=== PATIENT | female | born 1985 | race Caucasian/White ===

== ENCOUNTER → 2018-12-07 08:51 | Outpatient (CLI) | payer OTHER, SELFPAY ==
[2018-11-17 12:37] VITALS: BMI 32.5
[2018-12-07 10:52] LABS: Anion Gap 6 (5-15); BUN 19 mg/dL (7-18); Chloride 107 mmol/L (98-107); Cholesterol 174 mg/dL (200); EST Glomerular Filtration Rate 102 mL/min (>60); Est Glom Filt Rate - Afr Amer 123 mL/min (>60); Glucose 78 mg/dL (74-106); High Density Lipoprotein 75 mg/dL; Potassium 3.8 mmol/L (3.5-5.1); Sodium Level 140 mmol/L (136-145); Thyroid Stim Hormone (TSH) 2.15 uIU/mL (0.358-3.74); Triglycerides 65 mg/dL; Very Low Density Lipoprotein 13 mg/dL (5-40)
== END ==
PROVIDERS: Family Provider Family Medicine; PCP Family Medicine; Referring Provider Family Medicine; Visit Provider Family Medicine
DX: Z00.00 Encounter for general adult medical examination without abnormal findings (principal)
CPT/HCPCS: 36415; 80048; 80061; 84443

== ENCOUNTER → 2019-11-23 | Outpatient (CLI) | payer OTHER, SELFPAY ==
[2019-11-23 10:06] VITALS: BMI 36.5
[2019-11-28 11:52] LABS: HPV APTIMA, High Risk Negative (Negative)
== END | disposition home or self-care (01) ==
PROVIDERS: PCP Family Medicine; Referring Provider Obstetrics & Gynecology; Visit Provider Obstetrics & Gynecology
DX: Z12.4 Encounter for screening for malignant neoplasm of cervix (principal)
CPT/HCPCS: 87624; 88175; G0145

== ENCOUNTER → 2019-11-26 10:21 | Outpatient (CLI) | payer OTHER, SELFPAY ==
[2019-11-23 10:06] VITALS: BMI 36.5
[2019-11-26 11:19] LABS: Vitamin D,25 Hydroxy 22.9 ng/mL
[2019-11-26 11:24] LABS: Cholesterol 158 mg/dL (200); Glucose 86 mg/dL (74-106); High Density Lipoprotein 55 mg/dL; Triglycerides 96 mg/dL; Very Low Density Lipoprotein 19 mg/dL (5-40)
== END ==
PROVIDERS: PCP Family Medicine; Referring Provider Obstetrics & Gynecology; Visit Provider Obstetrics & Gynecology
DX: Z13.1 Encounter for screening for diabetes mellitus (principal); Z13.220 Encounter for screening for lipoid disorders; Z13.21 Encounter for screening for nutritional disorder
CPT/HCPCS: 36415; 80061; 82306; 82947

== ENCOUNTER → 2020-11-29 13:07 | Outpatient (CLI) | payer OTHER, SELFPAY ==
[2020-11-29 09:00] VITALS: BMI 31.4
[2020-12-04 20:33] LABS: HPV APTIMA, High Risk Negative (Negative)
== END ==
PROVIDERS: Visit Provider Obstetrics & Gynecology
DX: Z12.4 Encounter for screening for malignant neoplasm of cervix (principal)
CPT/HCPCS: 87624; 88175; G0145

== ENCOUNTER 2021-12-18 07:13 | Outpatient (CLI) | payer OTHER, SELFPAY ==
[2021-12-18 10:27] LABS: Vitamin D,25 Hydroxy 21.7 ng/mL
[2021-12-18 10:38] LABS: Anion Gap 4 (5-15); BUN 16 mg/dL (7-18); BUN/Creat Ratio 21.5 RATIO (10-20); Calcium,Total 9.4 mg/dL (8.5-10.1); Chloride 106 mmol/L (98-107); Cholesterol 174 mg/dL (200); Creatinine, Serum 0.74 mg/dL (0.55-1.02); EST Glomerular Filtration Rate 94 mL/min (>60); Est Glom Filt Rate - Afr Amer 113 mL/min (>60); Follicle Stimulating Hormone 7.9 mIU/mL; Glucose 93 mg/dL (74-106); High Density Lipoprotein 72 mg/dL; Luteinizing Hormone 4.6 mIU/mL; Potassium 3.8 mmol/L (3.5-5.1); Sodium Level 137 mmol/L (136-145); Thyroid Stim Hormone (TSH) 1.82 uIU/mL (0.358-3.74); Triglycerides 66 mg/dL; Very Low Density Lipoprotein 13 mg/dL (5-40)
[2021-12-24 16:51] LABS: Estrogen, Total, Serum 98 pg/mL (.)
== END 2021-12-18 23:59 | disposition home or self-care (01) ==
LOC: MTLAB 07:15
PROVIDERS: PCP Family Medicine; Referring Provider Family Medicine; Visit Provider Family Medicine
DX: Z00.00 Encounter for general adult medical examination without abnormal findings (principal); R23.2 Flushing
CPT/HCPCS: 36415; 80048; 80061; 82306; 82672; 83001; 83002; 84443

== ENCOUNTER → 2022-12-20 | Outpatient (CLI) | payer OTHER, SELFPAY ==
--- NOTE | 2022-12-20 10:40 | US_ITS ---
INDICATION: secondary oligomenorrhea EXAMINATION: Ultrasound US Pelvis Non OB Complete With Transvaginal Imaging TECHNIQUE: Transabdominal and transvaginal pelvic ultrasound was performed. Grayscale, spectral waveform, and color flow Doppler evaluation of the adnexa. COMPARISON: None. FINDINGS: UTERUS: Anteverted. The uterus measures 8.6 x 6.1 x 4.2 cm. There is no uterine mass. The endometrial stripe measures 4 mm in AP diameter which is within normal limits. RIGHT OVARY: 3.4 x 2.2 x 2.0%. Non-enlarged, normal echogenicity. There is normal arterial inflow and venous outflow present in the right ovary. LEFT OVARY: 2.8 x 1.9 x 1.6 cm. Non-enlarged, normal echogenicity. There is normal arterial inflow and venous outflow present in the left ovary. Both ovaries demonstrate multiple peripheral follicular cysts consistent with polycystic ovarian syndrome. FREE FLUID: None. US/Pelvic w/ Transvaginal IMPRESSION: Uterus normal. Multiple peripheral cysts within both ovaries consistent with polycystic ovarian syndrome. Electronically Signed: Ethan Greenfield MD, NIR at 12:52 EDT ,
== END | disposition home or self-care (01) ==
PROVIDERS: PCP Family Medicine; Referring Provider Obstetrics & Gynecology; Visit Provider Obstetrics & Gynecology
DX: N91.4 Secondary oligomenorrhea (principal)
CPT/HCPCS: 76830; 76856

== ENCOUNTER → 2022-12-22 | Outpatient (CLI) | payer OTHER, SELFPAY ==
[2022-12-22 12:53] LABS: Anion Gap 3 (5-15); BUN 14 mg/dL (7-18); BUN/Creat Ratio 21.2 RATIO (10-20); Calcium,Total 9.2 mg/dL (8.5-10.1); Chloride 107 mmol/L (98-107); Cholesterol 182 mg/dL (200); Creatinine, Serum 0.66 mg/dL (0.55-1.02); EST Glomerular Filtration Rate 107 mL/min (>60); Est Glom Filt Rate - Afr Amer 130 mL/min (>60); Estradiol 40.8 pg/mL; Follicle Stimulating Hormone 7.7 mIU/mL; Glucose 87 mg/dL (74-106); High Density Lipoprotein 78 mg/dL; Luteinizing Hormone 7.2 mIU/mL; Potassium 3.8 mmol/L (3.5-5.1); Prolactin 9.8 ng/mL; Sodium Level 138 mmol/L (136-145); Thyroid Stim Hormone (TSH) 1.68 uIU/mL (0.358-3.74); Triglycerides 53 mg/dL; Very Low Density Lipoprotein 11 mg/dL (5-40)
[2022-12-26 02:07] LABS: Testosterone Free 4.4 pg/mL (0.0-4.2)
[2022-12-26 10:45] LABS: Estrogen, Total, Serum 124 pg/mL (.)
[2023-01-01 15:08] LABS: 17-Hydroxyprogesterone 21 ng/dL (.)
== END | disposition home or self-care (01) ==
LOC: MFPLAB 09:46
PROVIDERS: Obstetrics & Gynecology; PCP Family Medicine; Visit Provider Family Medicine
DX: Z00.00 Encounter for general adult medical examination without abnormal findings (principal); N91.2 Amenorrhea, unspecified
CPT/HCPCS: 36415; 80048; 80061; 82627; 82670; 82672; 83001; 83002; 83498; 84146; 84402; 84443; 82626

== ENCOUNTER 2023-01-14 10:37 | Outpatient (RCR) | payer OTHER, SELFPAY | END 2023-02-11 23:59 | LOC: NS 10:37 | PROVIDERS: PCP Family Medicine; Referring Provider Obstetrics & Gynecology; Visit Provider Obstetrics & Gynecology | DX: E66.9 Obesity, unspecified (principal); Z71.3 Dietary counseling and surveillance; Z68.31 Body mass index [BMI] 31.0-31.9, adult | CPT/HCPCS: 97802 ==

== ENCOUNTER 2024-01-15 20:06 | Emergency (ER) | payer OTHER, SELFPAY ==
[2024-01-15 20:07] VITALS: BP 151/90; PULSE 80; RESP 16; TEMP 36.8; O2SAT 100; BMI 31.6
--- NOTE | 2024-01-15 20:25 | RAD_ITS ---
INDICATION: Trauma EXAMINATION/TECHNIQUE: X-RAY - LEFT XR Ankle Min 3 Views 3 VIEWS COMPARISON: No relevant prior comparison study available FINDINGS: SOFT TISSUES: No soft tissue swelling or gas. No radiopaque foreign body. BONES/JOINTS: Displaced bimalleolar fractures. Widening of the tibiofibular syndesmosis consistent with syndesmosis ligament tear. No sclerotic or destructive changes observed. RAD/Ankle min 3 Views IMPRESSION: Displaced bimalleolar fractures. Widening of the tibiofibular syndesmosis consistent with syndesmosis ligament tear. Electronically Signed: Romel Lau MD at 20:52 EDT ,
--- NOTE | 2024-01-15 20:25 | ED.VIS.LOWEX ---
HPI History of Present Illness Chief Complaint: Lower Extremity Injury Narrative Narrative: 38-year-old female who denies significant past medical history presents with pain and swelling to her left ankle after she sustained an injury while she was walking her dog. She states that she has a boxer and they were out for a walk. Her dog is pretty strong, and started running up the hill. In order to hold her dog back, she braced against the hill, heard a pop in her left ankle and fell. She denies hitting her head or loss of consciousness, but is now having pain and swelling mainly in the medial aspect of her left ankle. She states she can hear popping and cracking when she tries to move or bear weight on her left lower extremity. She denies other injury. PFSH PFSH Home Medications cholecalciferol (vitamin D3) 10 mcg (400 unit) capsule 10 mcg PO DAILY 12/17/23 [History Last Taken Unknown] zinc acetate 25 mg (zinc) capsule (Galzin) 25 mg PO DAILY 12/17/23 [History Last Taken Unknown] Crutches #1 ea 01/15/24 [Rx Last Taken Unknown] hydrocodone-acetaminophen 5-325mg 5mg-325mg 1 tab PO Q6H PRN PRN Pain 3 days #12 TABLETS 01/15/24 [Rx Last Taken Unknown] Allergy/AdvReac Type Severity Reaction Status Date / Time No Known Allergies Allergy Verified 01/15/24 20:09 Family History Grandmother Hypertension Mother Thyroid disorder Grandfather CVA (cerebral vascular accident) Father Diabetes Surgical History delivery delivered Social History number of children: 1 current occupational status: employed current occupation: RN [employer] Smoking Status: Never smoker alcohol intake: current details: social substance use type: does not use caffeine: Yes what type of physical activity do you participate in: none seatbelt use: always do you feel safe at home: Yes additional social history: Isaac- Self employed, [employer] Patient works in [employer] ROS ROS ED ROS Narrative Positive pain and swelling left lower extremity and ankle joint. Pain is mainly medial. No hitting of head, no loss of consciousness. Denies other injuries. EXAM Physical Exam Narrative Exam Narrative: Afebrile. Vital signs noted. HEENT: Normocephalic. Atraumatic. PERRL, EOMI. Neck soft and supple. No point tenderness or step off. Cardiovascular: Regular rate and rhythm. No murmurs, rubs, or gallops appreciated. Respiratory: No tachypnea. Lungs clear to auscultation bilaterally. Gastrointestinal: Abdomen soft, nontender, with normoactive bowel sounds. No rebound or guarding. Examination of the left lower extremity reveals diffuse swelling throughout the left ankle with mild tenderness of the left medial malleolus. Palpable dorsalis pedis pulse. No pain at base of fifth metatarsal. No palpable Achilles tendon deficit. Able to flex and dorsiflex left foot. No proximal tibial head tenderness. Positive flexion extension left knee. Const Vital Signs: 01/15/24 20:07 Temperature 98.2 F Temperature Source Temporal Pulse Rate 80 Respiratory Rate 16 Blood Pressure 151/90 H Blood Pressure Mean 110 Pulse Ox 100 Oxygen Delivery Method Room Air MDM MDM MDM Narrative Medical decision making narrative: In the differential is ankle sprain versus fracture. She was given 1 [place] tablet here in the emergency department. She had also been given an ice pack for comfort. X-rays obtained of the left ankle in 3 views interpreted by myself independently show a bimalleolar fracture with mild displacement of the talus. I reviewed the radiology report which confirms my independent interpretation and comments on widening of the tibiofibular syndesmosis consistent with syndesmosis ligament tear. I discussed patient with Dr. Bedoya, on for podiatry/foot and ankle. Patient will be placed in a modified Surya Ball splint using Ortho-Glass. She was given a prescription for crutches and will be nonweightbearing. I also wrote her prescription for [place]. She is to follow-up with podiatry on Thursday. She will continue ice and elevation at home. She was told that she will most likely require surgery next week. I feel she can be discharged safely home with follow-up. Return instructions to the emergency department were reviewed. Disposition is discharged home in stable condition. History & Record Review Discussion w/independent historian: Patient Radiography Chest X-Ray - ED: Read by ED Physician Diagnostic Testing: Clinical Impression(s) from Imaging Studies Ankle X-Ray 01/15/24 20:25 IMPRESSION: Displaced bimalleolar fractures. Widening of the tibiofibular syndesmosis consistent with syndesmosis ligament tear. Electronically Signed: Romel Lau MD at 20:52 EDT , Procedures Lower Extremity Splints Lower Extremity Splint: Ozzy and Surya Ball (Without large, fluffy cotton padding) Splint Fabrication: Fabricated Location: Left Discharge Plan Triage Chief Complaint: Lower Extremity Injury ED Provider: Pascual Marcus Dx/Rx/DC Orders Clinical Impression: Closed bimalleolar fracture of left ankle Instructions: ED Ankle Fracture Prescriptions: New hydrocodone-acetaminophen 5-325 mg tablet 1 tab PO Q6H PRN PRN (Reason: Pain) 3 Days Qty: 12 0RF (DME) Crutches Adult See Rx Instructions .Route .MEDSUPPLY Qty: 1 0RF Rx Instructions: As directed - non weight bearing on left ankle No Action cholecalciferol (vitamin D3) 10 mcg (400 unit) capsule 10 mcg PO DAILY Galzin 25 mg (zinc) capsule 25 mg PO DAILY Primary Care Provider: Chele De Oliveira Referrals: Que Bedoya DPM [Med Staff - Active Staff] - 01/18/24 Chele De Oliveira MD [Primary Care Provider] - Activity Restrictions/Additional Instructions: Call Dr. Bedoya on Thursday for an appointment to be seen that day. Continue ice and elevation of your left lower extremity and do not bear weight on your left lower extremity. Disposition Disposition: Home, Self Care
[2024-01-15] MEDS: HYDROcodone Bitartrate/Apap 5/325 Tablet PO (20:30)
[2024-01-15 23:17] VITALS: BP 126/76; PULSE 82; RESP 18; TEMP 36.6; O2SAT 97
== END 2024-01-15 23:51 | disposition home or self-care (01) ==
PROVIDERS: Emergency Provider Emergency Medicine; PCP Family Medicine; Visit Provider Emergency Medicine
DX: S82.842A Displaced bimalleolar fracture of left lower leg, initial encounter for closed fracture (principal); X58.XXXA Exposure to other specified factors, initial encounter
CPT/HCPCS: 29515; 73610; 99283

== ENCOUNTER 2024-01-21 17:11 | Inpatient (IN) | payer OTHER, SELFPAY ==
[2024-01-21] VITALS (31 sets, daily range): BP systolic 89–141; BP diastolic 46–87; PULSE 84–114; RESP 13–20; TEMP 36.5–37.1; O2SAT 91–100; BMI 31.6; BMI 36.6
[2024-01-21 08:39] LABS: Internal QC Validated? YES +Cl - CLEAR BKGD; Pregnancy, Urine Negative Negative
[2024-01-21] MEDS: Lactated Ringers 1,000 ML 15 ML IV (08:45)
[2024-01-21 08:55] LABS: Absolute Lymphocyte Count 2.45 X10^3/uL (0.83-4.51); Absolute Neutrophil Count 3.7 X10^3/uL (2.0-7.7); Basophil# 0.05 X10^3/uL; Basophil% 0.7 % (0-1); Eosinophil# 0.23 X10^3/uL; Eosinophils% 3.3 % (0-5); Hematocrit 37.7 % (37-47); Hemoglobin 12.4 g/dL (12.0-15.0); Lymphocyte # 2.45 X10^3/ul (0.83-4.51); Lymphocyte % 35.6 % (19-41); Mean Corp Hgb Conc 32.9 g/dL (32-36); Mean Corpuscular Hgb 28.6 pg (27.0-32.0); Mean Corpuscular Volume 86.9 fL (81-99); Mean Platelet Vol. 8.3 fl (6.2-12.0); Monocyte# 0.45 X10^3/uL; Monocyte% 6.5 % (0-10); NRBC Flagged by Analyzer 0 % (0-5); Neutrophil # 3.67 X10^3/uL (2.7-7.7); Neutrophil % 53.5 % (47-70); Platelet Count 367 K/mm3 (150-450); RBC Distribution Width CV 11.9 % (11.6-14.6); RBC Distribution Width SD 38.1 fl (35.1-43.9); Red Blood Count 4.34 M/mm3 (4.2-5.4); White Blood Count 6.9 K/mm3 (4.4-11.0)
[2024-01-21 09:12] LABS: ALB/GLOB Ratio 0.9 RATIO (0.9-2.4); AST(SGOT) 12 U/L (15-37); Alanine Aminotransfer ALT/SGPT 18 U/L (13-56); Albumin, Serum 3.5 g/dL (3.2-5.0); Alkaline Phosphatase 84 U/L (45-117); Anion Gap 5 (5-15); BUN 16 mg/dL (7-18); BUN/Creat Ratio 21.8 RATIO (10-20); Calcium,Total 9.1 mg/dL (8.5-10.1); Chloride 107 mmol/L (98-107); Creatinine, Serum 0.73 mg/dL (0.55-1.02); EST Glomerular Filtration Rate 94 mL/min (>60); Est Glom Filt Rate - Afr Amer 114 mL/min (>60); Estimated Creatinine Clearance 114.39 ml/min; Globulin 3.9 g/dL (2.2-4.2); Glucose 97 mg/dL (74-106); Potassium 3.8 mmol/L (3.5-5.1); Protein, Total 7.4 g/dL (6.4-8.2); Sodium Level 138 mmol/L (136-145)
[2024-01-21] MEDS: Cefazolin 2 GM in 0.9% Normal Saline (100mL Bag) 100 ML IV (09:46)
--- NOTE | 2024-01-21 09:57 | RAD_ITS ---
PROCEDURE: Intraoperative fluoroscopic services for ORIF right ankle DATE OF EXAMINATION: January 21, 2024 INDICATION: Female, 38 years old. Displaced bimalleolar fractures. FLUOROSCOPY TIME (if supplied): (55.2 seconds) minutes/seconds. 2.41 mGy. 5 fluoroscopic images were submitted. RAD/Ankle 2 Views IMPRESSION: Intraoperative fluoroscopic services provided for ORIF of the bimalleolar fracture. Electronically Signed: Mulugeta Mitchell MD at 14:21 EDT ,
--- NOTE | 2024-01-21 11:40 | ECHOL_ITS ---
Reason For Study: Hypotension Procedure This was a limited 2D transthoracic echocardiogram. Exam performed in OR. MMode/2D Measurements & Calculations LVIDd: 3.6 cm IVSd: 1.1 cm LA dimension(2D): 2.0 cm LVIDs: 1.8 cm LVPWd: 1.2 cm FS: 50.8 % ECHO/Echo, Limited Study Interpretation Summary Limited 2D echocardiogram performed in the OR. Hyperdynamic left ventricular systolic function. Estimated EF 75%. Normal RV. No pericardial effusion. Ordering Physician: Que Bedoya Referring Physician: Que Bedoya Performed By: Yulia Alvarez, AMELIA, RVT
--- NOTE | 2024-01-21 11:43 | PCM.OPRPT ---
Problems Associated Problem List Diagnoses (1) Closed bimalleolar fracture of left ankle: (2) Syndesmotic disruption of left ankle: Report of Operation Date of Procedure: 01/21/24 Pre-Operative Diagnosis: 1) Bimalleolar Left Ankle Fracture 2) Syndesmotic disruption left ankle Post-Operative Diagnosis: same Surgery/Procedure Performed:: Open reduction internal fixation distal fibula left (procedure incomplete due to intraoperative hypotension) Description of Surgical Findings:: Patient suffered ankle fracture while walking her dog on 01/15/2024. Appear to be proximal pronation abduction or pronation external rotation type injury. Displaced medial malleoli are fracture syndesmotic widening and Rondon B laterally displaced fibular fracture. Initially patient had significant soft tissue swelling. This resolved upon evaluation in my office 01/19/2024 with no evidence of fracture blisters. Plan for urgent open reduction internal fixation was created and proceeded with patient was consented and agreed. Intraoperatively patient had some hypotension early on with hypoventilation. Patient was intubated and deemed to be stable. Procedure was started. Distal fibula was reduced adequately and upon reduction of syndesmosis patient had continued worsening hypotension and was asked to stop per anesthesia. Additional workup was then proceeded arterial line was gained echocardiogram was ordered patient was started on pressors. Plan at that time was for transfer to ICU once a bed opened up for stabilization. Surgeon: Que Bedoya classer: None Type of Anesthesia: General Special Medications: popliteal block per anesthesia pre op Specimen's removed: none Drains: none Estimated Blood Loss (mL): minimal Description of Procedure: Patient brought back the operating placed comfortably in supine position on operating room table. Patient was then induced. All osseous prominences were offloaded prevent any compression neuropraxia's. Well-padded left thigh tourniquet was applied. Left lower extremity was positioned back on a external rotation. Was elevated on blankets to prevent interference with fluoroscopic imaging contralateral limb. Left lower extremity was then scrubbed prepped draped using typical aseptic fashion. Fluoroscopic imaging was used to zakia out distal fibular fracture syndesmosis and medial malleoli are fracture as well as ankle joint and distal tibiofibular syndesmosis. A direct lateral incision was made over the distal fibula down to level of bone through epidermis dermis subcutaneous tissue to deep fascia. Blunt dissection was performed avoiding any neurovascular structures which were protected with blunt retraction. At this time it was noted that patient was having some hypotension patient was intubated. Per anesthesia was instructed to continue while patient was placed in Trendelenburg position. Additional dissection was taken with blunt dissection removing the fascia off the distal fibular fracture distal fibular fracture was identified and curetted with a bone curette flushed with saline. Closed reduction was performed with [id number] forceps. A 2 7 interfrag screw was placed using lag technique with the fibula held in reduction. A lateral distal anatomic locking plate was applied laterally using manufactures guidelines combination of 2 7 and 3 5 locking and nonlocking screws. AP imaging demonstrated adequate reduction of the distal fibular fracture with yazidism of length and derotation of the distal fibular fracture fragment. There is still noted to be distal tibiofibular syndesmotic widening and a medial malleoli are fracture. Upon reduction of distal tibiofibular syndesmosis I was asked to discontinue proceeding with the procedure as the patient's hypotension had persisted and they wish to attempt to wake the patient up and proceed with additional workup. Incisional site was flushed and closed with matt to skin a dry sterile dressing was applied as well as an AO splint to the left lower extremity. Plan is for transfer patient to ICU additional workup. Patient received arterial line multiple vasopressors and echocardiogram while in the operating room. At this time are plan for definitive fracture ORIF is delayed until patient is stabilized and there is further clinical clarity. Complications as described above Findings incomplete reduction distal tibiofibular syndesmosis and medial malleoli are fracture fragment due to early discontinuation of the case in setting of hypotension Grafts/Implants Used: [facility] Admit VTE Documentation VTE Present on Admission: Yes VTE Mechan Device Prophylaxis: SCD's VTE Pharm Prophylaxis ordered?: Yes
[2024-01-21 11:53] LABS: Base Excess -10 mmol/L (-2 to +2); Bicarbonate 17.1 mmol/L (22-26); Blood Gas Specimen Type ART; Mode Not entered; PO2 212 mmHG (75-100); SITE Not entered; SO2 100 % (95-99); Total Carbon Dioxide 18 mmol/L; pCO2 36.8 mmHg (35-45); pH 7.28 (7.35-7.45)
[2024-01-21] MEDS: Norepinephrine 8 MG in 0.9% Normal Saline (250mL Bag) 242 ML 9.4 MG CONT INF (12:00)
[2024-01-21 12:11] LABS: Base Excess -3 mmol/L (-2 to +2); Bicarbonate 22.3 mmol/L (22-26); Blood Gas Specimen Type ART; Mode Not entered; PO2 193 mmHG (75-100); SITE Not entered; SO2 100 % (95-99); Total Carbon Dioxide 24 mmol/L; pCO2 38.1 mmHg (35-45); pH 7.38 (7.35-7.45)
[2024-01-21 12:12] LABS: Absolute Lymphocyte Count 4.07 X10^3/uL (0.83-4.51); Absolute Neutrophil Count 17.4 X10^3/uL (2.0-7.7); Basophil# 0.09 X10^3/uL; Basophil% 0.4 % (0-1); Eosinophils% 0.5 % (0-5); Hematocrit 39.9 % (37-47); Hemoglobin 13.3 g/dL (12.0-15.0); Lymphocyte # 4.07 X10^3/ul (0.83-4.51); Lymphocyte % 18.4 % (19-41); Mean Corp Hgb Conc 33.3 g/dL (32-36); Mean Corpuscular Volume 86.9 fL (81-99); Mean Platelet Vol. 8.5 fl (6.2-12.0); Monocyte# 0.29 X10^3/uL; Monocyte% 1.3 % (0-10); NRBC Flagged by Analyzer 0 % (0-5); Neutrophil # 17.39 X10^3/uL (2.7-7.7); Neutrophil % 78.7 % (47-70); Platelet Count 416 K/mm3 (150-450); RBC Distribution Width CV 11.8 % (11.6-14.6); RBC Distribution Width SD 37.5 fl (35.1-43.9); Red Blood Count 4.59 M/mm3 (4.2-5.4); White Blood Count 22.1 K/mm3 (4.4-11.0)
[2024-01-21 12:29] LABS: ALB/GLOB Ratio 0.9 RATIO (0.9-2.4); AST(SGOT) 12 U/L (15-37); Alanine Aminotransfer ALT/SGPT 10 U/L (13-56); Albumin, Serum 1.8 g/dL (3.2-5.0); Alkaline Phosphatase 52 U/L (45-117); Anion Gap 10 (5-15); BUN 15 mg/dL (7-18); BUN/Creat Ratio 15.3 RATIO (10-20); Calcium,Total 7.3 mg/dL (8.5-10.1); Chloride 109 mmol/L (98-107); Creatinine, Serum 0.98 mg/dL (0.55-1.02); EST Glomerular Filtration Rate 67 mL/min (>60); Est Glom Filt Rate - Afr Amer 81 mL/min (>60); Estimated Creatinine Clearance 85.21 ml/min; Globulin 2.1 g/dL (2.2-4.2); Glucose 221 mg/dL (74-106); Potassium 3.9 mmol/L (3.5-5.1); Protein, Total 3.9 g/dL (6.4-8.2); Sodium Level 143 mmol/L (136-145)
[2024-01-21 12:54] LABS: Troponin-I HS 39 pg/mL (3.0-54.0)
[2024-01-21 13:07] LABS: Lactic Acid 7.5 mmol/L (0.4-1.9)
[2024-01-21 13:10] LABS: D-Dimer Quantitative (DVT/PE) 4.24 FEU/ug/m (0.27-0.49)
[2024-01-21] MEDS: Furosemide 20 MG/2 ML VIAL IV (15:53)
--- NOTE | 2024-01-21 15:54 | SUR.PHASEI ---
DR SANTIAGO CALLED FOR UPDATE. PT ARMS SWELLING. ORDERS FROM JACK, DECREASE LR TO 100 ML /HR, GIVE 20 MG LASIX IV X1. NO REDRAW ON LACTIC ACID AT THIS TIME.
[2024-01-21 16:08] LABS: Reflex Lactate? Y
--- NOTE | 2024-01-21 17:09 | PCM.HP.STD ---
HPI - General General Date of Admission: 01/21/24 Date of Service: 01/21/24 Chief Complaint: post-op shock HPI Narrative STAN BEAUCHAMP, is a 38 F who presented to [facility] on 01/21/2024 for an outpatient procedure with Dr. Bedoya with podiatry for left ankle fracture repair. Intraoperative course was complicated by severe hypotension and hypoxia. Patient required intubation briefly during the case, was extubated successfully postoperatively. She developed severe hypotension requiring heavy IV fluid resuscitation and pressor medications during the case. Notably, the planned case was an ORIF of the distal left tibia and the procedure was not completed due to intraoperative hypotension. She had labs drawn while in the OR around 12 PM and was found to have a lactate of 7.5. IV fluids and pressors were continued and patient was ultimately admitted to the ICU for further management. I saw patient at bedside in the ICU around 6:30 PM this evening. also present at bedside. 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 At that time, patient appeared much improved from previous. She was sitting up comfortably in bed, conversing normally, in no acute distress. She was breathing comfortably on room air at rest with oxygen saturations in the mid to high 90s. She had continued sinus tachycardia in the 100s but this was somewhat improved from previous. Blood pressures were consistently in the 90s to 100s systolic over 60s to 70s diastolic. Repeat labs drawn around 6 PM showed the lactate was much improved at 2.4. Patient was not requiring pressor medications when I saw her. She fractured her left ankle on 01/14 when she got tangled up while walking her dog. She came to the ED that day and x-ray showed the left ankle fracture. Per podiatry recs, she was placed in a left ankle splint, given a prescription for crutches and rec for nonweightbearing status with follow-up with podiatry on Wednesday 01/17. She was then scheduled for the procedure today. States that she has largely not been able to do much since ankle fracture, especially given the left leg nonweightbearing status. She denies any history of DVT/PE. She had a with one of her pregnancies about 10 years ago, otherwise had never required another operation before. She generally is in good health. Labs drawn around 12 PM were also notable for WBC count 22, CBC and BMP otherwise benign, D-dimer 4.24. Chest x-ray on arrival to the ICU showed no concerning findings. She has been afebrile and noninfectious appearing, lower concern for infectious etiology. Given elevated D-dimer and recent immobility with left leg, CTA chest was obtained to rule out PE and was pending at this time. [facility] Medical History (Updated 01/21/24 @ 20:[address] Ronaldo Vanessa, DO) Back pain GERD (gastroesophageal reflux disease) Heartburn History of pain when walking Non-smoker Wears dentures Home Medications cholecalciferol (vitamin D3) 10 mcg (400 unit) capsule 10 mcg PO DAILY 12/17/23 [History Last Taken Unknown] zinc acetate 25 mg (zinc) capsule (Galzin) 25 mg PO DAILY 12/17/23 [History Last Taken Unknown] Crutches #1 ea 01/15/24 [Rx Last Taken Unknown] aspirin 81 mg capsule 81 mg PO DAILY 01/20/24 [History Last Taken 01/20/24] naproxen sodium 220 mg capsule (Aleve) 440 mg PO DAILY PRN pain 01/20/24 [History Last Taken Unknown] oxycodone 5 mg tablet 5 mg PO Q6H PRN pain 7 days #28 tabs 01/20/24 [Rx Last Taken 01/21/24 06:40] famotidine 20 mg tablet (Pepcid) 20 mg PO DAILY GERD 01/21/24 [History Last Taken Unknown] Allergy/AdvReac Type Severity Reaction Status Date / Time dog dander Allergy Severe Other Verified 01/21/24 08:56 Dressing: Non-Medicated Allergy Severe Other Verified 01/21/24 08:56 Family History Grandmother Hypertension Mother Thyroid disorder Grandfather CVA (cerebral vascular accident) Father Diabetes Surgical History (Updated 01/20/24 @ 11:44 by Milagros Daley) delivery delivered Social History number of children: 1 current occupational status: employed current occupation: RN [employer] Smoking Status: Never smoker alcohol intake: current details: social substance use type: does not use caffeine: Yes what type of physical activity do you participate in: none seatbelt use: always do you feel safe at home: Yes additional social history: Isaac- Self employed, [employer] and painting Patient works in [employer] ROS Constitutional Constitutional: Denies chills, fatigue, fever(s) or weakness Cardiovascular Cardiovascular: Denies chest pain Respiratory/Chest Respiratory/Chest: Denies shortness of breath at rest or wheezing Gastrointestinal Gastrointestinal: Denies abdominal pain Musculoskeletal Musculoskeletal: Reports other Details: Mild left ankle pain Neurologic Neurologic: Denies dizziness or headache(s) Vital Signs Vital Signs Vital Signs: 01/21/24 08:57 01/21/24 08:57 01/21/24 12:32 Temperature 98.0 F 98 F Temperature Source Temporal Temporal Pulse Rate 85 90 Respiratory Rate 16 16 Respiratory Pattern Normal Normal Blood Pressure 141/87 H 132/74 H Blood Pressure Mean 105 93 Blood Pressure Source Monitor Monitor Blood Pressure Position Sitting Supine Blood Pressure Location Left Arm Right Arm Baseline BP 141/87 Pulse Ox 100 100 Oxygen Delivery Method Room Air Simple Mask Oxygen Flow Rate (L/min) 6 01/21/24 12:35 01/21/24 12:40 01/21/24 12:45 Temperature Temperature Source Pulse Rate 96 100 102 H Respiratory Rate 16 16 16 Respiratory Pattern Blood Pressure 127/70 H 113/69 106/77 Blood Pressure Mean 89 83 86 Blood Pressure Source Monitor Monitor Arterial Line Blood Pressure Position Supine Semi-Fowlers Semi-Fowlers Blood Pressure Location Right Arm Right Arm Left Arm Baseline BP 141/87 141/87 141/87 Pulse Ox 100 100 97 Oxygen Delivery Method Room Air Room Air Room Air Oxygen Flow Rate (L/min) 01/21/24 12:50 01/21/24 13:00 01/21/24 13:15 Temperature Temperature Source Pulse Rate 114 H 114 H 114 H Respiratory Rate 16 16 16 Respiratory Pattern Blood Pressure 99/64 96/63 89/61 L Blood Pressure Mean 75 74 70 Blood Pressure Source Arterial Line Arterial Line Arterial Line Blood Pressure Position Semi-Fowlers Semi-Fowlers Semi-Fowlers Blood Pressure Location Left Arm Left Arm Left Arm Baseline BP 141/87 141/87 141/87 Pulse Ox 97 98 97 Oxygen Delivery Method Room Air Room Air Room Air Oxygen Flow Rate (L/min) 01/21/24 13:30 01/21/24 13:45 01/21/24 14:00 Temperature Temperature Source Pulse Rate 108 H 106 H 109 H Respiratory Rate 16 16 16 Respiratory Pattern Blood Pressure 106/71 104/71 102/70 Blood Pressure Mean 82 82 80 Blood Pressure Source Arterial Line Arterial Line Arterial Line Blood Pressure Position Semi-Fowlers Semi-Fowlers Semi-Fowlers Blood Pressure Location Left Arm Left Arm Left Arm Baseline BP 141/87 141/87 141/87 Pulse Ox 95 95 94 Oxygen Delivery Method Room Air Room Air Room Air Oxygen Flow Rate (L/min) 01/21/24 13:00 01/21/24 13:15 01/21/24 13:50 Temperature Temperature Source Pulse Rate Respiratory Rate Respiratory Pattern Blood Pressure 108/69 89/61 L 102/70 Blood Pressure Mean 82 70 80 Blood Pressure Source Blood Pressure Position Blood Pressure Location Baseline BP Pulse Ox Oxygen Delivery Method Oxygen Flow Rate (L/min) 01/21/24 14:00 01/21/24 14:15 01/21/24 14:15 Temperature Temperature Source Pulse Rate 114 H Respiratory Rate 16 Respiratory Pattern Blood Pressure 102/70 106/71 98/74 Blood Pressure Mean 80 82 82 Blood Pressure Source Monitor Arterial Line Blood Pressure Position Semi-Fowlers Semi-Fowlers Blood Pressure Location Right Arm Left Arm Baseline BP 141/87 141/87 Pulse Ox 93 Oxygen Delivery Method Room Air Oxygen Flow Rate (L/min) 01/21/24 14:45 01/21/24 15:00 01/21/24 15:15 Temperature Temperature Source Pulse Rate 114 H 110 H 112 H Respiratory Rate 16 16 16 Respiratory Pattern Blood Pressure 103/57 L 107/46 L 101/68 Blood Pressure Mean 72 66 79 Blood Pressure Source Monitor Monitor Arterial Line Blood Pressure Position Semi-Fowlers Semi-Fowlers Semi-Fowlers Blood Pressure Location Right Arm Right Arm Right Arm Baseline BP 141/87 141/87 141/87 Pulse Ox 94 91 95 Oxygen Delivery Method Room Air Room Air Room Air Oxygen Flow Rate (L/min) 01/21/24 14:30 01/21/24 14:30 01/21/24 14:45 Temperature Temperature Source Pulse Rate 113 H Respiratory Rate 16 Respiratory Pattern Blood Pressure 116/68 92/79 99/66 Blood Pressure Mean 84 83 77 Blood Pressure Source Monitor Arterial Line Arterial Line Blood Pressure Position Semi-Fowlers Semi-Fowlers Semi-Fowlers Blood Pressure Location Right Arm Left Arm Left Arm Baseline BP 141/87 141/87 141/87 Pulse Ox 94 Oxygen Delivery Method Room Air Oxygen Flow Rate (L/min) 01/21/24 15:00 01/21/24 15:30 01/21/24 15:45 Temperature Temperature Source Pulse Rate 110 H 110 H Respiratory Rate 16 16 Respiratory Pattern Blood Pressure 91/65 96/64 100/69 Blood Pressure Mean 73 74 79 Blood Pressure Source Arterial Line Arterial Line Arterial Line Blood Pressure Position Semi-Fowlers Semi-Fowlers Semi-Fowlers Blood Pressure Location Left Arm Left Arm Left Arm Baseline BP 141/87 141/87 141/87 Pulse Ox 92 95 Oxygen Delivery Method Nasal Cannula Nasal Cannula Oxygen Flow Rate (L/min) 2 2 01/21/24 16:00 01/21/24 16:15 Temperature 98.7 F Temperature Source Temporal Pulse Rate 110 H 108 H Respiratory Rate 16 16 Respiratory Pattern Blood Pressure 97/70 97/70 Blood Pressure Mean 79 79 Blood Pressure Source Arterial Line Arterial Line Blood Pressure Position Semi-Fowlers Semi-Fowlers Blood Pressure Location Left Forearm Left Arm Baseline BP 141/87 141/87 Pulse Ox 99 97 Oxygen Delivery Method Room Air Room Air Oxygen Flow Rate (L/min) Weight Weight: 86.183 kg Body Mass Index (BMI) 31.6 Physical Exam Const alert, oriented x3 and no apparent distress Constitutional Narrative: Pleasant younger female, obese, sitting up underlying bed, conversing normally, in no acute distress. General Appearance: cooperative and comfortable HEENT normocephalic, head/scalp atraumatic, hearing grossly normal bilaterally, nasal mucous membranes and turbinates normal and moist oral mucous membranes Eyes PERRL, EOMs intact bilaterally and conjunctivae normal Neck full ROM Chest inspection of chest normal Resp normal respiratory effort, normal air movement, no use of accessory muscles and clear to auscultation bilaterally Cardio regular rate, regular rhythm, no murmurs and peripheral pulses 2+ throughout GI normal to inspection, nondistended, normoactive bowel sounds, soft to palpation, non-tender and non-distended Back/Spine normal ROM Extremity Extremity Narrative: Left leg with cast and Artie wrap from just below toes up to just below the knee. Skin no rashes or lesions noted Neuro moves all extremities and no focal motor deficits Speech: speech normal Psych mental status grossly normal Results Lab / Micro Data 01/21/24 17:45 01/21/24 17:45 Labs: Laboratory Results - last 24 hr 01/21/24 08:29: Urine Test Negative 01/21/24 08:45: WBC 6.9, RBC 4.34, Hgb 12.4, Hct 37.7, MCV 86.9, MCH 28.6, MCHC 32.9, RDW Std Deviation 38.1, RDW Coeff of Joon 11.9, Plt Count 367, MPV 8.3, Immature Gran % (Auto) 0.400, Neut % (Auto) 53.5, Lymph % (Auto) 35.6, Piute % (Auto) 6.5, Eos % (Auto) 3.3, Baso % (Auto) 0.7, Absolute Neuts (auto) 3.7, Absolute Lymphs (auto) 2.45, Nucleated RBC % 0, Sodium 138, Potassium 3.8, Chloride 107, Carbon Dioxide 26.0, Anion Gap 5, BUN 16, Creatinine 0.73, Estim Creat Clear Calc 114.39, Est GFR (MDRD) Af Amer 114, Est GFR (MDRD) Non-Af 94, BUN/Creatinine Ratio 21.8 H, Glucose 97, Calcium 9.1, Total Bilirubin 0.40, AST 12 L, ALT 18, Alkaline Phosphatase 84, Total Protein 7.4, Albumin 3.5, Globulin 3.9, Albumin/Globulin Ratio 0.9 01/21/24 12:07: WBC 22.1 H, RBC 4.59, Hgb 13.3, Hct 39.9, MCV 86.9, MCH 29.0, MCHC 33.3, RDW Std Deviation 37.5, RDW Coeff of Joon 11.8, Plt Count 416, MPV 8.5, Immature Gran % (Auto) 0.700, Neut % (Auto) 78.7 H, Lymph % (Auto) 18.4 L, Piute % (Auto) 1.3, Eos % (Auto) 0.5, Baso % (Auto) 0.4, Absolute Neuts (auto) 17.4 H, Absolute Lymphs (auto) 4.07, Nucleated RBC % 0, D-Dimer Quant (PE/DVT) 4.24 H*, Sodium 143, Potassium 3.9, Chloride 109 H, Carbon Dioxide 24.0, Anion Gap 10, BUN 15, Creatinine 0.98, Estim Creat Clear Calc 85.21, Est GFR (MDRD) Af Amer 81, Est GFR (MDRD) Non-Af 67, BUN/Creatinine Ratio 15.3, Glucose 221 H, Lactic Acid 7.5 H*, Calcium 7.3 L, Total Bilirubin 0.30, AST 12 L, ALT 10 L, Alkaline Phosphatase 52, Troponin I High Sens 39, Total Protein 3.9 L, Albumin 1.8 L, Globulin 2.1 L, Albumin/Globulin Ratio 0.9 ABG Data ABG results: ABG 01/21/24 01/21/24 11:49 12:08 Specimen Type ART ART Sample Site Not entered Not entered pH 7.28 L 7.38 Bicarbonate Actual 17.1 L 22.3 Total CO2 18 24 Base Excess -10 L -3 L O2 Saturation 100 H 100 H O2 % 10.0 10.0 ABG pCO2 36.8 38.1 ABG pO2 212 H 193 H O2 Delivery Device mask Oxy Mask Vent Mode Not entered Not entered Assessment & Plan Assessment/Plan (1) Shock: (2) Hypoxia: (3) Closed bimalleolar fracture of left ankle: PLAN: Plan Patient is a 38-year-old female who presented to [facility] on 01/21/2024 for planned left ankle ORIF procedure with podiatry. Procedure was complicated by intraoperative hypotension and concern for shock, and patient was admitted under the hospital medicine service to the ICU for further management. 1. Intraoperative shock, elevated D-dimer ? Admit under inpatient status to the ICU. Patient now very stable with adequate blood pressures off pressors; if remains stable overnight will be okay for transfer to PCU tomorrow, will hold on rubber insulator consult. Unclear etiology of shock, given elevated D-dimer and recent immobility due to left ankle fracture had concern for possible DVT/PE, CTA chest pending. Lactate trend 7.5 down to 2.4, will repeat lactate tomorrow morning to ensure resolution. Patient appears mildly edematous, will hold on further IV fluids. Continue to monitor closely. 2. Intraoperative hypoxia, resolved ? Briefly required intubation during procedure. Suspect the hypoxia may have been due to sedation with obesity leading to poor ventilatory drive. Chest x-ray postop in the ICU with clear lung kiran, no concerning findings. Breathing comfortably on room air at rest with good oxygen saturations on evening of procedure. 3. Left ankle fracture ? Podiatry following. Left ankle cast in place. Pain control with scheduled Tylenol, oxycodone as needed and IV Dilaudid as needed for now. Lovenox for DVT prophylaxis. Will defer further management to podiatry. 4. Leukocytosis ? Suspect due to acute stress state given intraoperative shock. WBC count 6 on morning of 01/20, increased to 22 intraoperatively and improved to 18 on the evening of 01/20. Follow-up a.m. CBC. Afebrile and noninfectious appearing, low concern for active infection, will hold on ordering blood cultures or treated with antibiotics at this time. 5. Mild hyperglycemia ? Blood glucose 221 during procedure, remained mildly elevated at 163 on evening of 01/20. Suspect due to acute stress state. No history of diabetes noted. Will obtain A1c for further evaluation. Chronic medical conditions: ? Obesity: BMI 36 on admit. Encouraged lifestyle modifications. Complicates hospital course, care and prognosis. ? GERD: Stable, continue home Pepcid. ? PCOS DVT prophylaxis: Lovenox CODE STATUS: Full code, verified Expected disposition: Home, TBD Total clinical time spent by myself addressing the patient's medical issues, reviewing all the data, and collaborating with patient's care team: 55 minutes. Charges/Coding Visit Charges Inpatient E&M: 07369 Init Hosp L2
--- NOTE | 2024-01-21 17:20 | RAD_ITS ---
INDICATION: acute hypoxia EXAMINATION/TECHNIQUE: X-RAY - XR Chest 1 View COMPARISON: FINDINGS: LINES/DEVICES: None. LUNGS: No consolidation, edema or effusion. No pneumothorax. MEDIASTINUM AND CARDIOVASCULAR STRUCTURES: Cardiac silhouette not enlarged. Central airways and mediastinal contour are unremarkable. BONES AND SOFT TISSUES: Unremarkable. RAD/Chest 1 View (Portable) IMPRESSION: No radiographic evidence of acute cardiopulmonary disease. Electronically Signed: Randy Garduno DO at 17:34 EDT ,
[2024-01-21] MEDS: Famotidine 20 MG Tablet 40 MG PO (18:00)
[2024-01-21] MEDS: oxyCODONE 5 MG Tablet PO ×2 (18:04→23:43)
[2024-01-21] MEDS: Furosemide 40 MG/4 ML Vial IV (18:04)
[2024-01-21 18:17] LABS: Hematocrit 43.1 % (37-47); Hemoglobin 14.3 g/dL (12.0-15.0); Mean Corp Hgb Conc 33.2 g/dL (32-36); Mean Corpuscular Hgb 28.6 pg (27.0-32.0); Mean Corpuscular Volume 86.2 fL (81-99); Mean Platelet Vol. 8.6 fl (6.2-12.0); Platelet Count 421 K/mm3 (150-450); RBC Distribution Width CV 11.9 % (11.6-14.6); RBC Distribution Width SD 37.4 fl (35.1-43.9); White Blood Count 18.3 K/mm3 (4.4-11.0)
[2024-01-21 18:47] LABS: ALB/GLOB Ratio 0.9 RATIO (0.9-2.4); AST(SGOT) 19 U/L (15-37); Alanine Aminotransfer ALT/SGPT 15 U/L (13-56); Albumin, Serum 2.6 g/dL (3.2-5.0); Alkaline Phosphatase 62 U/L (45-117); Anion Gap 6 (5-15); BUN 17 mg/dL (7-18); BUN/Creat Ratio 20.2 RATIO (10-20); Chloride 107 mmol/L (98-107); Creatinine, Serum 0.84 mg/dL (0.55-1.02); EST Glomerular Filtration Rate 81 mL/min (>60); Est Glom Filt Rate - Afr Amer 98 mL/min (>60); Estimated Creatinine Clearance 107.29 ml/min; Globulin 2.9 g/dL (2.2-4.2); Glucose 163 mg/dL (74-106); Protein, Total 5.5 g/dL (6.4-8.2); Sodium Level 137 mmol/L (136-145)
[2024-01-21 18:51] LABS: Lactic Acid 2.4 mmol/L (0.4-1.9)
--- NOTE | 2024-01-21 19:11 | CT_ITS ---
INDICATION: r/o PE EXAMINATION: CT CHEST WITH CONTRAST - CT Chest W/ Contrast Injection TECHNIQUE: Helically acquired images were obtained of the chest following IV contrast. A radiation dose optimization technique was used for this scan. IV Contrast dosage and agent: RADIATION DOSAGE (If Supplied By Facility): CTDIvol = ( 12.40 ) mGy, DLP = ( 392.70 ) mGycm COMPARISON: FINDINGS: LUNGS, PLEURA AND LARGE AIRWAYS: No masses, consolidation, or edema. No pleural effusion or thickening. No pneumothorax. THYROID: Right thyroid nodule. HEART AND PERICARDIUM: Heart size is normal. No pericardial effusion. VESSELS: Thoracic aorta is not dilated. No aortic dissection. No obvious central pulmonary embolism although this study was not performed with the pulmonary embolism protocol. MEDIASTINUM AND SANDRINE: No mediastinal or hilar adenopathy. Esophagus is unremarkable. No hiatal hernia. UPPER ABDOMEN: No acute pathology. BONES: No suspicious lytic or blastic abnormality. CT/CTA Chest W/WO Contrast IMPRESSION: No CT evidence of pulmonary embolism. Electronically Signed: Randy Garduno DO at 20:55 EDT Reading Location ID and State: [facility] / [place] Tel [phone], Service support ,
[2024-01-21] MEDS: Acetaminophen 500 MG Tablet 1000 MG PO (21:20)
[2024-01-21] MEDS: MELATONIN 3 MG TABLET PO (21:20)
[2024-01-21] MEDS: BENZOCAINE/MENTHOL 1 LOZENGE MUCOUS MEM (21:46)
[2024-01-21 22:01] LABS: Reflex Lactate? Y
[2024-01-21 23:16] LABS: Lactic Acid 3.5 mmol/L (0.4-1.9)
[2024-01-22] VITALS (11 sets, daily range): BP systolic 99–138; BP diastolic 49–67; PULSE 80–94; RESP 12–18; TEMP 36.4–36.6; O2SAT 96–99; BMI 34.4
[2024-01-22] MEDS: DiphenhydrAMINE 25 MG Capsule PO ×2 (02:05→11:14)
[2024-01-22] MEDS: Acetaminophen 500 MG Tablet 1000 MG PO ×2 (05:23→14:31)
[2024-01-22] MEDS: oxyCODONE 5 MG Tablet PO ×2 (06:27→15:16)
[2024-01-22] MEDS: Enoxaparin 40 MG/0.4 ML Syringe SC (10:25)
[2024-01-22] MEDS: 0.9% Saline Lock 10 ML Syringe IV (10:25)
[2024-01-22] MEDS: Aspirin 81 MG TAB.CHEW PO (10:25)
[2024-01-22] MEDS: Furosemide 20 MG/2 ML VIAL IV (11:07)
[2024-01-22] MEDS: BENZOCAINE/MENTHOL 1 LOZENGE MUCOUS MEM (11:14)
--- NOTE | 2024-01-22 11:25 | CASEMGMT ---
RN CM Face to Face with patient for initial transition planning/care coordination assessment. RN CM introduced self and role at [facility]. Patient lying in bed, alert and oriented, at bedside. Patient willing to participate in assessment and is able to answer all questions appropriately. Care providers, pharmacy, and demographics verified. PCP: Yennifer Specialists: Aureliano milieu counselor; Katie, LEAD JANITOR Preferred Pharmacy: [facility] Insurance: [employer] Prescription Benefit: yes Living Will/HPOA: none LNOK: Living Arrangements: Patient lives with in a single story condo with no steps to enter. Patient is independent at home. Transportation: self, DME/HHC: Patient has crutches and purchased knee scooter that should be delivered soon. Patient denies previous HHC or SNF Patient wishes to discharge home, denies need for home health at this time. Patient states she has no further needs or concerns at this time. CM to follow for discharge planning needs that may arise. Disposition Plan: Patient to discharge home with family support and follow-up plans in place. Mariam WALLIS, RN, CM
--- NOTE | 2024-01-22 11:51 | PCM.DC.SUM ---
Providers Date of Admission: 01/21/24 Date of Discharge: 01/22/24 Primary Care Physician: Dr. Chele De Oliveira MD Consultations 01/21/24 17:32 Consult: Podiatry Routine Consulting Provider: Que Bedoya Reason for Consult: ankle fracture w/ repair EMERGENT Consult: No MD Notified: Yes Date Notified: 01/21/24 Time Notified: 17:19 Method of Notification: Verbal Diagnosis Discharge Diagnosis (1) Shock: Status: Acute Code(s): R57.9 - Shock, unspecified (2) Hypoxia: Status: Acute Code(s): R09.02 - Hypoxemia (3) Closed bimalleolar fracture of left ankle: Status: Acute Code(s): S82.842A - Displaced bimalleolar fracture of left lower leg, initial encounter for closed fracture Medications at Discharge Home Medications Crutches #1 ea 01/15/24 aspirin 81 mg capsule 162 mg PO DAILY 01/20/24 oxycodone 5 mg tablet 5 mg PO Q6H PRN pain 7 days #28 tabs 01/20/24 famotidine 20 mg tablet (Pepcid) 20 mg PO DAILY PRN PRN GERD 01/21/24 Hospital Course Procedures 2-D Echocardiogram, EKG and - (Ankle x-ray/CTA chest/chest x-ray) Summary of Care Provided Minutes Spent on Discharge: 37 Hospital Course: Mrs. Sims is a 38-year-old female who presented to [facility] on 01/21/2024 for an outpatient ankle surgery after she had previously sustained a left ankle fracture. Her intraoperative course was complicated by severe hypotension and hypoxia. She required intubation briefly during the case and was extubated successfully postoperatively however she developed severe hypotension requiring 7 L of IV fluids for resuscitation and brief utilization of pressors in the middle of the case. The planned ORIF of the distal left tibia was not completed due to the intraoperative complications. Her initial labs showed a normal CBC with follow-up labs later that day showing a leukocytosis which is to be expected at with the events that occurred but was otherwise unremarkable. Initial ABG showed a pH of 7.28 and a pCO2 of 36. A lactic acid was drawn and found to be 7.5 which explained her acidosis on her ABG. Her original BMP was unremarkable however follow-up BMP showed hyperglycemia, normal renal and liver functions but was otherwise unremarkable. Given her persistent hypotension she was admitted to the ICU. Repeat lactic acid trended down very quickly and was 2.4. By the time she got to the ICU she had significantly stabilized. CT of the chest was performed and unremarkable for any acute findings. An echocardiogram was done and showed an EF of 75% with no wall motion abnormalities and no valvular disorders. She was no longer hypoxic and was on room air. By the a.m. of 01/22/2024, her blood pressures were running anywhere from 10 8-1 20 systolic and in the 60s diastolic which seems to be consistent with her baseline. Her oxygen saturations were 96 to 99% on room air. She was markedly edematous related to her fluid resuscitation and had been given 20 mg of Lasix overnight and I gave her repeat 20 mg here today. She was monitored after and her blood pressures remained stable so she was discharged home in stable condition with plan, per discussion with Dr. Bedoya, for surgical intervention on Thursday with less sedation to be utilized and possibly spinal anesthesia. I discussed the case extensively with the patient and Dr. Bedoya. The patient is anxious to go home and feels like she is overall much better. I have asked her to hold her Aleve in the short-term in preparation for surgery and she was discharged home in stable condition on 01/22/2024. Dr. Bedoya gave her instructions for Mondays pending surgery. Patient is to remain nonweightbearing on her left lower extremity Discharge diagnoses: Intraoperative hypotension-resolved Intraoperative hypoxia-resolved Volume overload-improving Lactic acidosis-secondary to hypoglycemia-resolved Elevated D-dimer Left ankle fracture Hyperglycemia-likely stress response GERD PCOS Obesity Physical Exam Const alert, oriented x3, no apparent distress, no limitations, healthy appearing and well nourished Constitutional Narrative: Obese, middle-aged, female, sitting up in bed, watching television, at bedside, patient appears comfortable and nontoxic, on room air General Appearance: cooperative, comfortable, well kempt and well developed Orientation / Consciousness: awake, oriented to person, oriented to place and oriented to time Exam Limitations: no limitations Nutritional Appearance: obese HEENT normocephalic, head/scalp atraumatic, hearing grossly normal bilaterally and moist oral mucous membranes Eyes PERRL, EOMs intact bilaterally and conjunctivae normal Eyes Narrative: No scleral icterus Neck no lymphadenopathy and supple Neck Narrative: Trachea midline, no noted thyroid enlargement Resp normal respiratory effort, no retractions, no use of accessory muscles and clear to auscultation bilaterally Auscultation: Negative for rales, rhonchi or wheezes Cardio regular rate, regular rhythm, S1 normal heart sound, S2 normal heart sound, no murmurs, no rub, no gallops and no clicks GI normal to inspection, nondistended, normoactive bowel sounds, soft to palpation and non-tender Extremity Extremity Narrative: Left lower extremity in splint which was placed intraoperatively, cap refill is good, slightly decreased sensation left lower extremity due to block, diffuse edema noted bilateral lower and upper extremities related to volume resuscitation, no cyanosis or clubbing Skin no rashes or lesions noted, no wounds, skin turgor normal and no jaundice Neuro oriented x3, moves all extremities and no focal motor deficits Speech: speech normal Psych affect normal Psych Narrative: Very pleasant, eye contact is good, patient interacts appropriately Weight / BMI Weight Weight: 93.8 kg Body Mass Index (BMI) 34.4 ABG / Lab / Microbiology Data 01/21/24 17:45 01/21/24 17:45 Laboratory: Laboratory Results - last 24 hr 01/21/24 12:07: WBC 22.1 H, RBC 4.59, Hgb 13.3, Hct 39.9, MCV 86.9, MCH 29.0, MCHC 33.3, RDW Std Deviation 37.5, RDW Coeff of Joon 11.8, Plt Count 416, MPV 8.5, Immature Gran % (Auto) 0.700, Neut % (Auto) 78.7 H, Lymph % (Auto) 18.4 L, [place] % (Auto) 1.3, Eos % (Auto) 0.5, Baso % (Auto) 0.4, Absolute Neuts (auto) 17.4 H, Absolute Lymphs (auto) 4.07, Nucleated RBC % 0, D-Dimer Quant (PE/DVT) 4.24 H*, Sodium 143, Potassium 3.9, Chloride 109 H, Carbon Dioxide 24.0, Anion Gap 10, BUN 15, Creatinine 0.98, Estim Creat Clear Calc 85.21, Est GFR (MDRD) Af Amer 81, Est GFR (MDRD) Non-Af 67, BUN/Creatinine Ratio 15.3, Glucose 221 H, Lactic Acid 7.5 H*, Calcium 7.3 L, Total Bilirubin 0.30, AST 12 L, ALT 10 L, Alkaline Phosphatase 52, Troponin I High Sens 39, Total Protein 3.9 L, Albumin 1.8 L, Globulin 2.1 L, Albumin/Globulin Ratio 0.9 01/21/24 17:45: WBC 18.3 H, RBC 5.00, Hgb 14.3, Hct 43.1, MCV 86.2, MCH 28.6, MCHC 33.2, RDW Std Deviation 37.4, RDW Coeff of Joon 11.9, Plt Count 421, MPV 8.6, Sodium 137, Potassium 4.0, Chloride 107, Carbon Dioxide 24.0, Anion Gap 6, BUN 17, Creatinine 0.84, Estim Creat Clear Calc 107.29, Est GFR (MDRD) Af Amer 98, Est GFR (MDRD) Non-Af 81, BUN/Creatinine Ratio 20.2 H, Glucose 163 H, Lactic Acid 2.4 H*, Calcium 8.0 L, Total Bilirubin 0.50, AST 19, ALT 15, Alkaline Phosphatase 62, Total Protein 5.5 L, Albumin 2.6 L, Globulin 2.9, Albumin/Globulin Ratio 0.9 01/21/24 22:20: Lactic Acid 3.5 H* ABG: ABG 01/21/24 01/21/24 11:49 12:08 Specimen Type ART ART Sample Site Not entered Not entered pH 7.28 L 7.38 Bicarbonate Actual 17.1 L 22.3 Total CO2 18 24 Base Excess -10 L -3 L O2 Saturation 100 H 100 H O2 % 10.0 10.0 ABG pCO2 36.8 38.1 ABG pO2 212 H 193 H O2 Delivery Device mask Oxy Mask Vent Mode Not entered Not entered Radiography Diagnostic Testing: Radiology Impression Echocardiogram 01/21/24 11:40 Interpretation Summary Limited 2D echocardiogram performed in the OR. Hyperdynamic left ventricular systolic function. Estimated EF 75%. Normal RV. No pericardial effusion. Ordering Physician: Que Bedoya Referring Physician: Que Bedoya Performed By: Yulia Alvarez, RDCS, RVT Chest X-Ray 01/21/24 17:20 IMPRESSION: No radiographic evidence of acute cardiopulmonary disease. Electronically Signed: Randy Garduno DO at 17:34 EDT , Chest CTA 01/21/24 19:11 IMPRESSION: No CT evidence of pulmonary embolism. Electronically Signed: Randy Garduno DO at 20:55 EDT , D/C Instructions Discharge Diet: No restrictions Discharge Activity: May Not Drive and Use Crutches (Nonweightbearing left lower extremity) Meaningful Use Info Meaningful Use Meaningful Use Diagnoses (Choose all that apply): None applicable Ischemic Stroke Statin Dosing Therapy Reference: STATIN DOSE THERAPY REFERENCE: * Patients > 75 years receive moderate or high dose statin therapy. * Patients 75 years or YOUNGER should receive HIGH intensity statin dose unless contraindicated. You will be required to document reason for non-treatment if statin daily dose does not meet guidelines. HIGH DOSE STATIN THERAPY DAILY Atorvastatin > than or = to 40 mg Rosuvastatin > than or = to 20 mg Amlodipine + Atorvastatin > than or = to 2.5/40 mg Ezetimibe + Simvastatin 10/80 mg Simvastatin 80mg Discharge Plan Admission Admit Date/Time: 01/21/24 17:11 Primary Reason for Your Visit: hypotension Attending Provider: Dulce Bai Primary Care Provider: Chele De Oliveira Consulting Providers: Que Bedoya; Ronaldo Vanessa Instructions Additional Instructions / Restrictions: 1. Please follow-up here on Thursday for surgical completion per Dr. Bedoya's recommendations. Discharge Orders/Prescriptions Prescriptions: Continued (DME) Crutches Adult See Rx Instructions .Route .MEDSUPPLY Qty: 1 0RF Rx Instructions: As directed - non weight bearing on left ankle oxycodone 5 mg tablet 5 mg PO Q6H PRN (Reason: pain) 7 Days Qty: 28 0RF aspirin 81 mg capsule 162 mg PO DAILY famotidine [Pepcid] 20 mg tablet 20 mg PO DAILY PRN PRN (Reason: GERD) Patient Comments: takes approx twice a month for flare ups Referrals / Follow Up: Chele De Oliveira MD [Primary Care Provider] - See Referral Note (as needed) Disposition Disposition (needs filled in before D/C Order can be placed): Home, Self Care Charges/Coding Visit Charges Inpatient E&M: 99961 Disch Hosp >30min
--- NOTE | 2024-01-22 12:06 | PCM.CONS.GEN ---
Assessment & Plan Assessment/Plan (1) Syndesmotic disruption of left ankle: QUALIFIERS: Encounter type: subsequent encounter Qualified Code(s): S93.432D - Sprain of tibiofibular ligament of left ankle, subsequent encounter PLAN: Exam performed Plan for ORIF on Thursday at 7:30 AM Keep splint clean dry and intact Maintain nonweightbearing left lower extremity Patient stable for discharge per podiatry standpoint (2) Closed bimalleolar fracture of left ankle: QUALIFIERS: Encounter type: subsequent encounter Fracture healing: with routine healing Qualified Code(s): S82.842D - Displaced bimalleolar fracture of left lower leg, subsequent encounter for closed fracture with routine healing HPI Consult Data Date of Consult: 01/22/24 HPI Narrative HPI Narrative: STAN BEAUCHAMP, is a 38 F who admitted yesterday due to complications intraoperatively. Patient stabilized overnight. Patient awake denies any pain at current. Patient able to wiggle her toes. Denies any fever chills nausea vomiting chest pain calf pain shortness of breath. [facility] Medical History (Updated 01/22/24 @ 12:[address] Que Bedoya, DPAdriana) Back pain GERD (gastroesophageal reflux disease) Heartburn History of pain when walking Non-smoker Wears dentures Home Medications cholecalciferol (vitamin D3) 10 mcg (400 unit) capsule 10 mcg PO DAILY 12/17/23 [History Last Taken Unknown] zinc acetate 25 mg (zinc) capsule (Galzin) 25 mg PO DAILY 12/17/23 [History Last Taken Unknown] Crutches #1 ea 01/15/24 [Rx Last Taken Unknown] aspirin 81 mg capsule 81 mg PO DAILY 01/20/24 [History Last Taken 01/20/24] naproxen sodium 220 mg capsule (Aleve) 440 mg PO DAILY PRN pain 01/20/24 [History Last Taken Unknown] oxycodone 5 mg tablet 5 mg PO Q6H PRN pain 7 days #28 tabs 01/20/24 [Rx Last Taken 01/21/24 06:40] famotidine 20 mg tablet (Pepcid) 20 mg PO DAILY GERD 01/21/24 [History Last Taken Unknown] Allergy/AdvReac Type Severity Reaction Status Date / Time cefazolin [From [facility]] Allergy Severe Low blood Verified 01/22/24 09:41 pressure dog dander Allergy Severe Other Verified 01/21/24 08:56 Dressing: Non-Medicated Allergy Severe Other Verified 01/21/24 08:56 Family History Grandmother Hypertension Mother Thyroid disorder Grandfather CVA (cerebral vascular accident) Father Diabetes Surgical History (Updated 01/20/24 @ 11:44 by Milagros Daley) delivery delivered Social History number of children: 1 current occupational status: employed current occupation: RN [employer] Smoking Status: Never smoker alcohol intake: current details: social substance use type: does not use caffeine: Yes what type of physical activity do you participate in: none seatbelt use: always do you feel safe at home: Yes additional social history: Isaac- Self employed, [employer] painting Patient works in [employer] Physical Exam Narrative Vascular status intact to distal left lower extremity. Splint noted to be intact. Const alert and oriented x3 Lab / Micro Data 01/21/24 17:45 01/21/24 17:45 Labs: Laboratory Results - last 24 hr 01/21/24 12:07: WBC 22.1 H, RBC 4.59, Hgb 13.3, Hct 39.9, MCV 86.9, MCH 29.0, MCHC 33.3, RDW Std Deviation 37.5, RDW Coeff of Joon 11.8, Plt Count 416, MPV 8.5, Immature Gran % (Auto) 0.700, Neut % (Auto) 78.7 H, Lymph % (Auto) 18.4 L, [place] % (Auto) 1.3, Eos % (Auto) 0.5, Baso % (Auto) 0.4, Absolute Neuts (auto) 17.4 H, Absolute Lymphs (auto) 4.07, Nucleated RBC % 0, D-Dimer Quant (PE/DVT) 4.24 H*, Sodium 143, Potassium 3.9, Chloride 109 H, Carbon Dioxide 24.0, Anion Gap 10, BUN 15, Creatinine 0.98, Estim Creat Clear Calc 85.21, Est GFR (MDRD) Af Amer 81, Est GFR (MDRD) Non-Af 67, BUN/Creatinine Ratio 15.3, Glucose 221 H, Lactic Acid 7.5 H*, Calcium 7.3 L, Total Bilirubin 0.30, AST 12 L, ALT 10 L, Alkaline Phosphatase 52, Troponin I High Sens 39, Total Protein 3.9 L, Albumin 1.8 L, Globulin 2.1 L, Albumin/Globulin Ratio 0.9 01/21/24 17:45: WBC 18.3 H, RBC 5.00, Hgb 14.3, Hct 43.1, MCV 86.2, MCH 28.6, MCHC 33.2, RDW Std Deviation 37.4, RDW Coeff of Joon 11.9, Plt Count 421, MPV 8.6, Sodium 137, Potassium 4.0, Chloride 107, Carbon Dioxide 24.0, Anion Gap 6, BUN 17, Creatinine 0.84, Estim Creat Clear Calc 107.29, Est GFR (MDRD) Af Amer 98, Est GFR (MDRD) Non-Af 81, BUN/Creatinine Ratio 20.2 H, Glucose 163 H, Lactic Acid 2.4 H*, Calcium 8.0 L, Total Bilirubin 0.50, AST 19, ALT 15, Alkaline Phosphatase 62, Total Protein 5.5 L, Albumin 2.6 L, Globulin 2.9, Albumin/Globulin Ratio 0.9 01/21/24 22:20: Lactic Acid 3.5 H* ABG Data ABG results: ABG 01/21/24 12:08 Specimen Type ART Sample Site Not entered pH 7.38 Bicarbonate Actual 22.3 Total CO2 24 Base Excess -3 L O2 Saturation 100 H O2 % 10.0 ABG pCO2 38.1 ABG pO2 193 H O2 Delivery Device Oxy Mask Vent Mode Not entered Imaging Radiology Impression Echocardiogram 01/21/24 11:40 Interpretation Summary Limited 2D echocardiogram performed in the OR. Hyperdynamic left ventricular systolic function. Estimated EF 75%. Normal RV. No pericardial effusion. Ordering Physician: Que Bedoya Referring Physician: Que Bedoya Performed By: Yulia Alvarez, RDCS, RVT Chest X-Ray 01/21/24 17:20 IMPRESSION: No radiographic evidence of acute cardiopulmonary disease. Electronically Signed: Randy Garduno DO at 17:34 EDT , Chest CTA 01/21/24 19:11 IMPRESSION: No CT evidence of pulmonary embolism. Electronically Signed: Randy Garduno DO at 20:55 EDT ,
--- NOTE | 2024-01-22 14:32 | CHAPLAIN ---
Type of Pastoral Visit _x__ Initial Visit ___ Follow-up Visit ___ On-call Visit ___ General Patient Visit ___ Spiritual Assessment ___ Family Conference ___ Bereavement ___ Rapid Response ___ Code Blue ___ Other (describe below) Pastoral Care Referral From _x__ Patient ___ Family ___ Nurse ___ Physician ___ Registered Travel Nurse ___ Aesthetician ___ Other (describe below) Sacrament/Intervention _x__ Active listening ___ Anointing ___ Orthodoxy ___ Bereavement ___ Communion _x__ Radha exploration ___ _x__ Life review _x__ Prayer ___ Reconciliation ___ Sacrament of Sick _x__ Supportive presence ___ Wedding ___ Other (describe below) Pastoral Comments patient is welcoming, talkative, and expressive about the surgery and complications of surgery of yesterday; pt admits that it was a crisis moment and fearful; pt is now better but will have to have surgery again on Thursday; pt gives life review and 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
--- NOTE | 2024-01-22 15:16 | CASEMGMT ---
Patient has order for discharge. RN CM in to discuss needs or help at discharge. Patient denies needs or help at discharge. Patient had no further questions or concerns.
== END 2024-01-22 16:47 | disposition home or self-care (01) | DRG 982 ==
LOC: SDC 01-22 08:46 → PCU 01-22 08:46 → ICU 01-22 08:46
PROVIDERS: Anesthesiology; Admitting Provider Hospitalist; PCP Family Medicine; Referring Provider Podiatrist; Visit Provider Internal Medicine
PROC: 0QSK04Z Reposition Left Fibula with Internal Fixation Device, Open Approach (ICD-10-PCS; principal; 2024-01-21 09:10)
DX: I97.88 Other intraoperative complications of the circulatory system, not elsewhere classified (principal); E87.20 Acidosis, unspecified; J95.88 Other intraoperative complications of respiratory system, not elsewhere classified; I95.9 Hypotension, unspecified; E87.70 Fluid overload, unspecified; K21.9 Gastro-esophageal reflux disease without esophagitis; S82.842A Displaced bimalleolar fracture of left lower leg, initial encounter for closed fracture; S93.432A Sprain of tibiofibular ligament of left ankle, initial encounter; E66.9 Obesity, unspecified; R09.02 Hypoxemia; R73.9 Hyperglycemia, unspecified; Z68.36 Body mass index [BMI] 36.0-36.9, adult; Z53.09 Procedure and treatment not carried out because of other contraindication; X58.XXXA Exposure to other specified factors, initial encounter; Y93.K1 Activity, walking an animal; Z79.82 Long term (current) use of aspirin; Z79.899 Other long term (current) drug therapy
CPT/HCPCS: 71045; 71275; 73600; 76000; 80053; 81025; 82803; 83605; 84484; 85025; 85027; 85379; 93005; 93308; 94668; C1713; J7050; J7120; Q9967; A4216; J1940; J2405

== ENCOUNTER 2024-01-25 06:06 | Day surgery (SDC) | payer OTHER, SELFPAY ==
[2024-01-25] VITALS (9 sets, daily range): BP systolic 107–127; BP diastolic 78–94; PULSE 71–87; RESP 16–17; TEMP 36.3–36.6; O2SAT 98–100; BMI 36.6
--- NOTE | 2024-01-25 06:30 | RAD_ITS ---
STUDY: X-RAY - LEFT ANKLE REASON FOR EXAM: Female, 38 years old. LEFT ORIF ANKLE FX TECHNIQUE: 10 intraoperative fluoroscopic spot films of the left ankle. COMPARISON: Left ankle radiographs dated 01/15/2024. FINDINGS: There is new placement of ORIF hardware. There is a new metallic sideplate with screw fixation along the distal fibula. There is a new partially threaded screw with washer extending through the medial malleolus. There is also a distal tibiofibular syndesmosis tightrope Endobutton in place. Normal visualized talus and visualized calcaneus. The visualized subtalar, talonavicular, and calcaneocuboid and tarsal articulations. RAD/Ankle min 3 Views IMPRESSION: New placement of ORIF hardware. Electronically Signed: Yifan Bai MD at 9:09 EDT ,
[2024-01-25] MEDS: Lactated Ringers 1,000 ML 15 ML IV (06:44)
[2024-01-25 06:54] LABS: Internal QC Validated? YES +Cl - CLEAR BKGD; Pregnancy, Urine Negative Negative; Record Kit Lot#,Urine Preg HCG0000718089
[2024-01-25] MEDS: Clindamycin 900 MG/50 ML BAG 75 MG IV (07:41)
--- NOTE | 2024-01-25 09:22 | PCM.OPRPT ---
Problems Associated Problem List Diagnoses (1) Fracture of medial malleolus, left, closed: (2) Syndesmotic disruption of left ankle: Report of Operation Date of Procedure: 01/25/24 Pre-Operative Diagnosis: Left syndesmotic disruption, Ankle Left Medial Malleolus Fracture, Closed, Displaced Post-Operative Diagnosis: same Surgery/Procedure Performed:: Left ankle syndesmotic stabilization Left ankle medial malleolus fracture open reduction with internal fixation application of short leg splint left lower extremity Description of Surgical Findings:: This was a case for returning to the OR after patient had a medical emergency during the first case which prematurely stopped the case. This is believed to be an anaphylactic response to one of the medications potentially Ancef. Once patient was deemed medically stable which to proceed with definitive stabilization of left ankle syndesmosis and left ankle medial malleolus with application of splint due to unstable trimalleolar equivalent ankle fracture. Surgeon: Que Bedoya brazing machine setter: None (radha maldonado) Type of Anesthesia: General Special Medications: popliteal block pre op per anesthesia Specimen's removed: none Drains: none Estimated Blood Loss (mL): minimal Description of Procedure: Patient brought back to the operating room. Patient placed on operating room table with all osseous prominences offloaded prevent any compression neuropraxia. Patient induced under general anesthesia. No issues with anesthesia. Well-padded left thigh tourniquet applied. Left lower extremity was positioned on blankets and a hip bump was placed to knock on external rotation. Left lower extremity was scrubbed prepped and draped in typical aseptic fashion. Left lower extremity tourniquet was inflated to 300 mmHg. Stabilization left ankle syndesmosis: The regional incision laterally was opened up after the matt were aseptically removed with blunt dissection. The plate was exposed. 2 cinch fix suture bridges were placed from lateral to medial across the syndesmosis through bone tunnels using manage manufactures guidelines with the syndesmosis held in reduction using [id number] bone reduction forceps. Adequate reduction of ankle syndesmosis was noted. Incisional site was flushed with copious amounts of normal sterile saline and closed with continuous interlocking 2-0 Vicryl to deep fascia. Simple interrupted buried to subcutaneous tissue with combination of 2-0 and 3-0 Vicryl. Skin closure performed with matt. Medial malleolus fracture open reduction internal fixation: Using fluoroscopic guidance a linear incision was made along the medial aspect of the tibia blunt dissection was taken down to level of deep fascia the medial malleolar fracture was identified any bleeders were identified and cauterized neurovascular structures were protected with blunt retraction. The medial malleolar fracture was then pinned in a reduced position as the foot was held in dorsiflexion and inversion. A 56 mm 4 oh headless compression screws with a washer using manufacture guidelines was placed across the fracture site. Adequate reduction was noted. Fluoroscopic imaging was used to take AP mortise and lateral views for final x-rays. Pentecostalism of the ankle mortise with reduction of the fibula distal tibiofibular syndesmosis and medial malleolus fractures were noted. Adequate length of uatsdin of the fibula with the rotation distal fibular fracture noted. Incisional site was flushed with copious amounts normal sterile saline. Subcutaneous deep fascia closure performed with running interlocking 2-0 Vicryl. Skin closure performed with matt. Incisional sites were dressed with Betadine Adaptic 4 x 4's ABD pad Kerlix. Tourniquet was let down prior to incisional closure, noted to be less than an hour. Left lower extremity was splinted with the foot and ankle held in a rectus position relative to the leg using a well-padded AO splint combination Ball compression dressing. Patient was then transported to the PACU vital signs stable and vascular status intact all digits for further monitoring prior to discharge. Patient tolerated procedure and anesthesia well apparent satisfactory condition. No complications Anatomic alignment of the distal ankle mortise and distal fibular and medial malleolus fractures as well as distal tibiofibular syndesmosis No specimens taken Complications None Admit VTE Documentation VTE Present on Admission: Yes VTE Pharm Prophylaxis ordered?: Yes
== END 2024-01-25 10:55 | disposition home or self-care (01) ==
LOC: SDC 06:07 → AC 06:08
PROVIDERS: Anesthesiology; PCP Family Medicine; Referring Provider Podiatrist; Visit Provider Podiatrist
PROC: (CPT 27766; principal; 2024-01-25 07:10)
DX: S82.842A Displaced bimalleolar fracture of left lower leg, initial encounter for closed fracture (principal); S93.432A Sprain of tibiofibular ligament of left ankle, initial encounter; K21.9 Gastro-esophageal reflux disease without esophagitis; Z79.899 Other long term (current) drug therapy; Z79.82 Long term (current) use of aspirin; X58.XXXA Exposure to other specified factors, initial encounter
CPT/HCPCS: 27766; 27829; 01480; 64447; 73610; 76000; 81025; 93005; C1713; J7120; J2405

== ENCOUNTER 2024-04-25 11:30 | Outpatient (RCR) | payer OTHER, SELFPAY ==
--- NOTE | 2024-03-09 13:25 | HP.PTEVAL ---
Patient's Visit Information Visit Information Visit Information: STAN BEAUCHAMP is a 39 year old F referred to Physical Therapy by Dr. Que Bedoya DPM with a diagnosis of DISPLACED TRIMALLEOLAR JOINT LINE ,LEFT. Date of Evaluation: 02/25/24 Physical Therapist: Jabier Marsh, PT, Cert MDT, OCS Visit Plan Frequency: 2x /Week Duration: 8 WEEKS Plan: S/P ORIF LEFTANKLE WITH SYNDESMOTIC ,JANUARY 20 AND JANUARY 24 WBAT WITH WALKING BOOT WITH CRUTCHES OKAY TO WEAN BOOT IN 2 WEEKS DERREK PT INTERVENTIONS ROM ,FLEXABILITY G-S ,STRENGTHENING EX'S ANKLE/INSTRINCS ,GAIT/BALANCE TRAINING WITH WEANING FROM BOOT ,WB EX'S ,PROPRIOCEPTION DERREK ,MANUAL THERAPY MOBILIZATION ANKLE AND VASO FOR EDEMA Subjective Subjective: This 39 female presents to physical therapy with displaced trimalleolar fracture left ankle. Patient underwent S/P ORIF and syndesmotic stabilization on January 20 but unable to finish due to having complication BP very low and stopped surgery then was intubated and had severe edema in body thus had to go to ICU ,this was caused by adverse reaction to medication levophed and antipoetic and possible anesthesia. Thus finished surgery 01/25/24 .Patient was d/c 01/25/24. D/C with kneel scooter and crutches with NWB LLE ,about 2 weeks ago able to gradual WBAT . Patient was place in walking boot. Seen Dr 02/23 WBAT LLE and crutches. Patient is possible 2weeks wean from walking boot. RTD in 4weeks MARCH 25. Patient twisted ankle JANUARY 14 walking dog went to ER had x-rays showed fracture. Patient has some paresthesia/tingling left. Patient has difficulty sleeping. Patient has is tory home level home. Patient has edema in left ankle . Patient condition affects QOL and function/job demands. Patient goals to walk normal and rtw. SOCIAL: VOCATION: RN Pain Left Ankle: Pain Intensity (Out of 10): 4 Pain Intensity Range: 10 Comment: LEFT Objective Objective: POSTURE:(frontal plane mechanics )pes planus SKIN: incision well approximate NEURO: denies paresthesia/tingling , EDEMA: trimalleolar joint line 62.1 cm GAIT: ambulates with crutches with WBAT with walking boot AROM: Dorsiflexion 15 degrees from 0 ,inversion 20 degrees ,eversion 5 degrees ,plantarflexion 40 degrees MMT: ( peak force) anterior tibialis 8.9 ,posterior tibialis 3.9 ,peroneus 4.2 ,G-S 10.2 FLEXABLITY: G-S MOD tight Balance/Special Test Scores Lower Extremity Functional Score: 18 Goals Goal 1:: I with HEP for ankle Goal Time Frame: 6-8 Weeks Goal 2:: Patient to improve AROM ankle by 5-10 degrees to improve function with gait Goal Time Frame: 6-8 Weeks Goal 3:: Patient to improve peak force ankle by 15-20# strength to improve gait Goal Time Frame: 6-8 Weeks Goal 4:: Patient to to ambulate with normal ingrid Goal Time Frame: 6-8 Weeks Goal 5:: Patient to demonstrate 70% improvement with improvement function and RTW Goal Time Frame: 6-8 Weeks Goal 6:: Patient to improve LFES score by 10-15 points to improve QOL and function Goal Time Frame: 6-8 Weeks Rehabilitation Potential Physical Therapy Diagnosis: This patient underwent s/p ORIF and syndesmotic stabilization on January 20 with post complication with current impairments with edema ,decrease AROM ,weakness ankle and decrease gait/proprioception thus benefit from skilled PT Rehabilitation Potential: Good Anticipated Interventions Patient/Client Instruction: Educate patient on: Condition and Plan of Care For the Purpose of:: To decrease pain, To decrease swelling/inflammation, To increase ROM, To improve muscle performance and motor function, To improve ability to perform ADL's, To increase tolerance to activity/condition/position, To improve ability of physical actions for home/community/work/leisure, To improve health of tissue, To decrease soft tissue restriction, To increase flexibility/ROM, To improve endurance, To improve balance, To reduce risk of recurrence and To improve tolerance to ADL's Therapeutic Exercise to Include: Strength training, Endurance training, Balance training, Flexibilty training, Passive ROM and Active ROM Comment: ANKLE For the Purpose of:: To decrease pain, To increase ROM, To improve muscle performance and motor function, To increase tolerance to activity/condition/position, To improve ability of physical actions for home/community/work/leisure, To improve gait and locomotor functions, To improve health of tissue, To decrease soft tissue restriction, To increase flexibility/ROM, To improve endurance, To improve balance and To improve tolerance to ADL's Manual Therapy Techniques to Include: Mobilization Comment: ANKLE JOINT For the Purpose of:: To decrease pain, To increase ROM, To improve nutrient delivery to tissue, To increase oxygenation perfusion, To improve health of tissue and To decrease soft tissue restriction Cryotherapy (ice pack, ice massage): Yes Vasopneumatic device: Yes For the Purpose of:: To decrease swelling/inflammation, To improve nutrient delivery to tissue, To increase oxygenation perfusion, To improve health of tissue and To decrease soft tissue restriction Text: Thank you for the opportunity to evaluate your patient. For Medicare and Medicare HMO plans, please review the plan of care and approve it. It will need to be FAXED BACK to us at [phone] for Medicare purposes. For Medicare only, by signing this I certify the plan of care. Please let me know if there are questions or concerns regarding this plan of care. Physician Signature: Date:
--- NOTE | 2024-04-25 11:58 | HP.PTDCSUM ---
Discharge Summary D/C summary: It has been my pleasure to treat STAN BEAUCHAMP referred by Dr. Que Bedoya DPM, with the diagnosis of DISPLACED TRIMALLEOLAR JOINT LINE ,LEFT for a total of 15 visit(s). Discharge Date: 04/25/24 Please see the following information for a summary of their discharge status. Subjective Subjective: Seen Dr granda 04/20 Doing well Patient states okay for d/c need more strengthening Patient is on light duty Pain Left Ankle: Pain Intensity (Out of 10): 0 Overall Improvement % Improvement: 95 Objective Objective/Function: POSTURE:(frontal plane mechanics )pes planus SKIN: intact NEURO: denies paresthesia/tingling PROPRIOCEPTION: 10 sec EDEMA: trimalleolar joint line 52.1 cm GAIT: reciprocal pattern mild antalgic gait AROM: Dorsiflexion degrees 5 ,inversion 30 degrees ,eversion 5 degrees ,plantarflexion 50 degrees MMT: ( peak force) anterior tibialis 32.0 ,posterior tibialis 17.5 ,peroneus 20.2 ,G-S 47.8 Goals Goal 1:: I with HEP for ankle Goal Progress: Goal Met Goal 2:: Patient to improve AROM ankle by 5-10 degrees to improve function with gait Goal Progress: Goal Met Goal 3:: Patient to improve peak force ankle by 15# strength to improve gait ( NEW GOAL) Goal Progress: Goal Met Goal 4:: Patient to to ambulate with normal ingrid Goal Progress: Goal Met Goal 5:: Patient to demonstrate 90% improvement with improvement function and RTW( NEW GOAL) Goal Progress: Goal Met Goal 6:: Patient to improve LFES score by 10-15 points to improve QOL and function Goal Progress: Goal Met Plan Plan: D/C D/C Information Discharge Comments: HEP d/c sentence: If there are questions or concerns regarding this patient's physical therapy, please feel free to call me at [phone]. Thank you for the referral of this patient. Sincerely, Jabier Marsh, PT, Cert MDT, OCS Balance/Gait/Functional tests Balance/Special Test Scores Lower Extremity Functional Score: 58 Improvement % Improvement: 95
== END 2024-04-25 13:37 | disposition home or self-care (01) ==
LOC: PT 11:30
PROVIDERS: PCP Family Medicine; Referring Provider Podiatrist; Visit Provider Podiatrist
DX: S82.852D Displaced trimalleolar fracture of left lower leg, subsequent encounter for closed fracture with routine healing (principal)
CPT/HCPCS: 97110; 97112; 97140; 97162; 97530

== ENCOUNTER → 2024-12-16 | Outpatient (CLI) | payer OTHER, SELFPAY ==
[2024-12-16 11:32] LABS: Anion Gap 13 (5-15); BUN 13 mg/dL (4-19); BUN/Creat Ratio 18.3 RATIO (10-20); Calcium,Total 9.6 mg/dL (7.6-11.0); Carbon Dioxide 23.3 mmol/L (21.0-32.0); Chloride 103 mmol/L (98-108); Cholesterol 202 mg/dL (<=200); Creatinine, Serum 0.71 mg/dL (0.70-1.20); EST Glomerular Filtration Rate 111 (>60); Glucose 91 mg/dL (70-99); High Density Lipoprotein 79 mg/dL; Low Density Lipoprotein Calc. 109 mg/dL; Potassium 4.1 mmol/L (3.3-5.1); Sodium Level 139 mmol/L (133-145); Triglycerides 70 mg/dL; Very Low Density Lipoprotein 14 mg/dL (5-40); cholesterol:hdl ratio screen 2.56
== END | disposition home or self-care (01) ==
LOC: MFPLAB 09:06
PROVIDERS: PCP Family Medicine; Referring Provider Family Medicine; Visit Provider Family Medicine
DX: Z00.00 Encounter for general adult medical examination without abnormal findings (principal)
CPT/HCPCS: 36415; 80048; 80061